=== PATIENT | male | born 1970 | race Hispanic/Latino ===

== ENCOUNTER 2018-04-08 07:00 | Emergency (ER) | payer BC, OTHER ==
[2018-04-08] MEDS ORDERED: TORADOL IM ONE (07:35)
[2018-04-08] MEDS ORDERED: DECADRON IM ONE (07:35)
--- NOTE | 2018-04-08 07:40 | Emergency Department Report ---
ED Neck Pain HPI Chief Complaint: Neck Pain/Injury Stated Complaint: NECK PAIN Time Seen by Provider: 04/08/18 07:34 Duration: 3 weeks Neck Pain Location: Lateral Neck (right side), Trapezius (right side) Severity: severe Mechanism: Unsure Symptoms: Yes Pain with Movement, No Radiation to Left Upper Ext, No Radiation to Right Upper Ext, No Numbness, No Weakness, No Previous History Other History: This is a 48-year-old male that presents with right sided knee pain for 3 weeks. Patient reports feeling like her throat was on the right side of neck with each turn for the past 3 weeks. When he woke up this morning and reports pain increased and he was unable to move neck. Reports pain as 10 out of 10 on pain scale. Pain is non-radiating and remains on the right lateral side of neck. At times pain is in lower right region of neck. Reports taking and [place] since symptoms started. His gave him a muscle relaxer despite morning which improved pain. Denies recent injury, fall, numbness or tingling, fever, and difficulty swallowing. ED Review of Systems ROS: Stated complaint: NECK PAIN Other details as noted in HPI Constitutional: denies: chills, fever Respiratory: denies: cough, shortness of breath, wheezing Cardiovascular: denies: chest pain, palpitations Gastrointestinal: denies: abdominal pain, nausea, diarrhea Musculoskeletal: arthralgia (right sided lateral neck pain). denies: back pain , joint swelling Skin: denies: rash, lesions Neurological: denies: headache, weakness, paresthesias Psychiatric: denies: anxiety, depression ED Past Medical Hx - Past Medical History Previous Medical History?: No - Surgical History Past Surgical History?: No - Social History Smoking Status: Never Smoker Substance Use Type: None, Non Opiate Pain - Medications Home Medications: Home Medications Medication Instructions Recorded Confirmed Last Taken Type Cyclobenzaprine HCl [Flexeril 5 MG 5 mg PO TID PRN #30 tab 04/08/18 Unknown Rx TAB] Naproxen Sodium [Anaprox Ds] 550 mg PO TID PRN #30 tablet 04/08/18 Unknown Rx Neck Pain Exam - Exam General: Vital signs noted. No distress. Alert and acting appropriately. HEENT: No Facial Pain, No Scalp Tenderness, No Contusion, No Abrasion, No Laceration Neck Pain: Yes Right Trapezius Tenderness, Yes Pain with Rotation Right (30 active range of motion, and able to tolerate passive range of motion), Yes Pain with Rotation Left, Yes Pain with Extension, Yes Pain with Flexion, Yes pain with R Lateral Flexion, Yes Pain with L Lateral Flexion, No Midline Tenderness, No Right Paraspinal Tenderness, No Left Paraspinal Tenderness, No Left Trapezius Tenderness Chest: Yes Clear Lung Sounds, No Pain with Respirations Heart: Yes Regular, No Murmur Back: No Thoracic Tenderness, No Lumbar Tenderness Neuro: No Numbness, No Weakness, No Normal Reflexes, No Radicular Deficits ED Course Vital Signs 04/08/18 07:14 Temperature 97.6 F Pulse Rate 61 Respiratory 18 Rate Blood Pressure 129/85 O2 Sat by Pulse 99 Oximetry ED Medical Decision Making - Medical Decision Making This is a 48-year-old male presents with neck pain that is worse on the right side for 3 weeks. Patient was examined by me. Vitals stable. Physical findings susceptible of muscle strain of right trapezius muscles with muscle spasm. Xray of C-spine and CT obtained and read by radiologist. Degenerative changes at C6 to C7, no acute findings. Patient informed of results. Start naproxen and cyclobenzaprine for pain. Plan discussed with patient to discharge home and treat outpatient. Follow-up with physical therapy. He agrees with ER plan. Patient discharged home in stable condition. Follow up with PCP and dentist in 2-3 days. Critical care attestation.: If time is entered above; I have spent that time in minutes in the direct care of this critically ill patient, excluding procedure time. ED Disposition Clinical Impression: Muscle spasms of neck Strain of right trapezius muscle Qualifiers: Encounter type: initial encounter Qualified Code(s): S46.811A - Strain of other muscles, fascia and tendons at shoulder and upper arm level, right arm, initial encounter Disposition: TO HOME OR SELFCARE Is pt being admited?: No Does the pt Need Aspirin: No Condition: Stable Instructions: Muscle Strain (ED) Additional Instructions: Rest Use ice or heat on affected area for 20 minutes and off for 2 hours. Take pain medication as needed for pain. Don't drive or operate heavy machinery while taking muscle relaxers because they may cause drowsiness. Follow-up with physical therapy. Follow up with Primary Care Provider in 2-3 days. Prescriptions: Cyclobenzaprine HCl [Flexeril 5 MG TAB] 5 mg PO TID PRN #30 tab PRN Reason: Muscle Spasm Naproxen Sodium [Anaprox Ds] 550 mg PO TID PRN #30 tablet PRN Reason: Pain Referrals: PRIMARY CARE,MD [Primary Care Provider] - 3-5 Days [facility] [Provider Group] - 3-5 Days [facility] [Other] - 3-5 Days Forms: Work/School Release Form(ED) Time of Disposition: 10:54 Print Language: MOHAWK
--- NOTE | 2018-04-08 11:19 | XRay Report ---
CERVICAL SPINE RADIOGRAPHS INDICATION: Right neck pain. COMPARISON: None similar. FINDINGS: AP, lateral, open mouth and swimmer's views of the cervical spine, 4 radiographs demonstrate normal imaged dens with symmetric lateral masses, though dens tip obscured due to overlying structures. Few radiopaque dental fillings. Clear visualized lung apices. Intact craniocervical articulation on the lateral view with normal predental space and prevertebral soft tissues. Preserved airway. Normal vertebral body stature. Fairly preserved disc heights. Slight straightening, possibly positional versus spasm. Mild C6-C7 degenerative spurring noted. CONCLUSION: Mild C6-C7 degenerative changes, as described. Please also correlate clinically and further with CT/MRI, as warranted. Thank you for the opportunity to participate in this patient's care.
[2018-04-08 11:20] VITALS: BP 141/89
--- NOTE | 2018-04-08 11:20 | Cat Scan Report ---
CT NECK WITH CONTRAST INDICATION: Neck pain. COMPARISON: None similar. FINDINGS: Neck CT performed following IV contrast. Axial, sagittal and coronal CT reconstructions obtained. Normal imaged intracranial appearance and included eye globes. Approximately 3 mm leftward nasal septal spur. Slight sphenoid sinus mucosal thickening anteriorly, right more than left. Clear remainder imaged paranasal sinuses and mastoid air cells. Few radiopaque dental material create streak artifact, limiting exam. Patent airway with unremarkable pharynx, hypopharynx and the larynx. Normal thyroid. Patent vessels. No size significant adenopathy. Clear visualized lung apices. C3-C4 and C4-C5 demonstrate mild left uncovertebral spurring and possible neural foraminal narrowing. C5-C6 may also demonstrate mild bilateral uncovertebral spurring and possible neural foraminal narrowing. C6-C7 also demonstrates mild left uncovertebral spurring, though assessment of the spinal canal from this level inferiorly compromised due to artifact from shoulder soft tissues. C7-T1 suggests slight bilateral facet arthropathy. CONCLUSION: No acute neck CT abnormality with few incidental findings, as above. Thank you for the opportunity to participate in this patient's care.
== END 2018-04-08 11:19 | disposition home or self-care (01) ==
LOC: ED 07:00
DX: S46.811A Strain of other muscles, fascia and tendons at shoulder and upper arm level, right arm, initial encounter (principal); M62.838 Other muscle spasm; X58.XXXA Exposure to other specified factors, initial encounter; Y93.89 Activity, other specified; Y92.89 Other specified places as the place of occurrence of the external cause; Y99.8 Other external cause status
CPT/HCPCS: 70491; 72040; 96372; 99284; J1100; J1885; Q9967

== ENCOUNTER 2018-04-20 17:01 | Emergency (ER) | payer BC ==
[2018-04-20 17:57] LABS: Bilirubin,Urine NEG (Negative); Blood,Urine MOD (Negative); Color,Urine Yellow (Yellow); Mucus,Urine 1+ /HPF; Protein,Urine <15 mg/dL mg/dL (Negative); Urobilinogen,Urine < 2.0 mg/dL (<2.0)
[2018-04-20 18:24] LABS: Basophils % (Auto) 0.7 % (0.0-1.8); Eosinophils # (Auto) 0.1 K/mm3 (0.0-0.4); Eosinophils % (Auto) 1.7 % (0.0-4.3); Hematocrit 43.6 % (35.5-45.6); Hemoglobin 15.5 gm/dl (11.8-15.2); Lymphocytes # (Auto) 1.5 K/mm3 (1.2-5.4); Lymphocytes % (Auto) 26.3 % (13.4-35.0); Mean Corpuscular HGB Conc 36 % (32-34); Mean Corpuscular Hemoglobin 32 pg (28-32); Mean Corpuscular Volume 89 fl (84-94); Monocytes # (Auto) 0.4 K/mm3 (0.0-0.8); Monocytes % (Auto) 6.7 % (0.0-7.3); Platelet Count 223 K/mm3 (140-440); Red Blood Count 4.93 M/mm3 (3.65-5.03); Red Cell Distribution Width 13.1 % (13.2-15.2)
--- NOTE | 2018-04-20 18:26 | Emergency Department Report ---
Blank Doc - Documentation Documentation: 48-year-old male with a past medical history of kidney stones treated with lithotripsy in the past presents to the hospital complaining of left flank pain several onset at 8 AM. Pain felt like "I was passing a kidney stone". Positive nausea without vomiting. Denies hematuria but states urine is dark in color. Pain subsided after drinking a lot of water and taking ibuprofen prior to arrival. Patient's urologist is Dr. Rainey and he was advised to come to the ED for evaluation. Last lithotripsy procedure was 3 years ago.
[2018-04-20 18:43] LABS: Alanine Aminotransferase 51 units/L (7-56); Albumin 4.5 g/dL (3.9-5); BUN/Creatinine Ratio 18; Blood Urea Nitrogen 18 mg/dL (9-20); Calcium 8.8 mg/dL (8.4-10.2); Hemolysis Index 21; Lipase 28 units/L (13-60)
--- NOTE | 2018-04-20 19:11 | Cat Scan Report ---
FINAL REPORT PROCEDURE: CT ABDOMEN PELVIS WO CON TECHNIQUE: Computerized axial tomography of the abdomen and pelvis was performed without intravenous contrast. This study is performed without intravascular contrast material and its sensitivity for abdominal and pelvic pathology, including neoplasms, inflammation, abscess, free fluid, thrombosis, arterial dissection and infarction, is reduced compared with a contrast enhanced study. HISTORY: left flank pain, hx of kidney stones COMPARISON: 01/10/2014 FINDINGS: Visualized lower thorax: No significant abnormality. Liver: There is diffuse low attenuation of the liver, compatible with fatty infiltration. Spleen: Normal size and attenuation. Gallbladder and biliary system: There is cholelithiasis. Pancreas: Normal. Adrenals: Normal. Kidneys: No hydronephrosis or urolithiasis bilaterally. GI tract: The appendix is visualized and does not appear inflamed. No bowel obstruction or acute inflammation is seen.. Lymph nodes and mesentery: Normal. Vasculature: Normal. Bladder: Normal. Reproductive organs: Normal. Peritoneum: No free fluid. Musculoskeletal structures: No significant abnormality. Other: None. IMPRESSION: Fatty infiltration of the liver. No hydronephrosis or urolithiasis. No acute inflammation is identified.
--- NOTE | 2018-04-20 19:35 | Emergency Department Report ---
ED Male HPI - General Chief complaint: Abdominal Pain Stated complaint: KIDNEY STONE PAIN Time Seen by Provider: 04/20/18 18:24 Source: patient Mode of arrival: Ambulatory Limitations: No Limitations - History of Present Illness Initial comments: 48-year-old male past medical history renal colic presents with complaint of left-sided flank pain with some associated nausea that started earlier today. Patient is currently awake alert and oriented 3 fully lucid and denies any pain nausea fever chills or dysuria whatsoever. Does state that his urine may have been darker or blood-tinged earlier today. States that he drank lots of fluid and now feels significantly better and has no pain at this time. Patient was evaluated by Dr. Nuno earlier. Denies fevers or chills. States he does have a history of kidney stones and follows with [facility]. -: This morning Location: left flank Severity: moderate Severity scale (0 -10): 0 Consistency: now resolved Improves with: none Worsens with: urination blood in urine - Related Data Previous Rx's Medication Instructions Recorded Last Taken Type Naproxen Sodium [Anaprox Ds] 550 mg PO TID PRN #30 tablet 04/08/18 Unknown Rx Tizanidine HCl [Zanaflex] 6 mg PO TID PRN #20 capsule 04/08/18 Unknown Rx Ibuprofen [Motrin] 800 mg PO Q8HR PRN #20 tablet 04/20/18 Unknown Rx Ondansetron [Zofran Odt] 4 mg PO Q8H PRN #12 tab.rapdis 04/20/18 Unknown Rx Allergies Allergy/AdvReac Type Severity Reaction Status Date / Time No Known Allergies Allergy Unverified 04/08/18 07:13 ED Review of Systems ROS: Stated complaint: KIDNEY STONE PAIN Other details as noted in HPI Constitutional: denies: chills, fever Eyes: denies: eye pain, eye discharge, vision change ENT: denies: ear pain, throat pain Respiratory: denies: cough, shortness of breath, wheezing Cardiovascular: denies: chest pain, palpitations Endocrine: no symptoms reported Gastrointestinal: denies: abdominal pain, nausea, diarrhea Genitourinary: as per HPI. denies: urgency, dysuria Musculoskeletal: denies: back pain, joint swelling, arthralgia Skin: denies: rash, lesions Neurological: denies: headache, weakness, paresthesias Psychiatric: denies: anxiety, depression Hematological/Lymphatic: denies: easy bleeding, easy bruising ED Past Medical Hx - Past Medical History Previous Medical History?: Yes Hx Kidney Stones: Yes Additional medical history: neck pain - Surgical History Past Surgical History?: Yes Additional Surgical History: Lithotripsy - Social History Smoking Status: Never Smoker Substance Use Type: Alcohol, Prescribed - Medications Home Medications: Home Medications Medication Instructions Recorded Confirmed Last Taken Type Naproxen Sodium [Anaprox Ds] 550 mg PO TID PRN #30 tablet 04/08/18 Unknown Rx Tizanidine HCl [Zanaflex] 6 mg PO TID PRN #20 capsule 04/08/18 Unknown Rx Ibuprofen [Motrin] 800 mg PO Q8HR PRN #20 tablet 04/20/18 Unknown Rx Ondansetron [Zofran Odt] 4 mg PO Q8H PRN #12 tab.rapdis 04/20/18 Unknown Rx ED Physical Exam - General Limitations: No Limitations General appearance: alert, in no apparent distress - Head Head exam: Present: atraumatic, normocephalic - Eye Eye exam: Present: normal appearance - ENT ENT exam: Present: mucous membranes moist - Neck Neck exam: Present: normal inspection - Respiratory Respiratory exam: Present: normal lung sounds bilaterally. Absent: respiratory distress - Cardiovascular Cardiovascular Exam: Present: regular rate, normal rhythm. Absent: systolic murmur, diastolic murmur, rubs, gallop - GI/Abdominal GI/Abdominal exam: Present: soft, normal bowel sounds - Rectal Rectal exam: Present: deferred - Extremities Exam Extremities exam: Present: normal inspection - Back Exam Back exam: Present: normal inspection - Neurological Exam Neurological exam: Present: alert, oriented X3 - Psychiatric Psychiatric exam: Present: normal affect, normal mood - Skin Skin exam: Present: warm, dry, intact, normal color. Absent: rash ED Course Vital Signs 04/20/18 04/20/18 17:06 19:52 Temperature 98.5 F 98.2 F Pulse Rate 93 H 68 Respiratory 18 18 Rate Blood Pressure 126/82 Blood Pressure 116/77 [Right] O2 Sat by Pulse 96 100 Oximetry ED Medical Decision Making - Lab Data Result diagrams: 04/20/18 17:52 04/20/18 17:52 - Medical Decision Making A/P: Renal colic, kidney stone 1-labs are unremarkable except for UA which shows moderate blood this is consistent with passing of kidney stone area and no nitrites or leukocytes. Patient has no current dysuria pain or nausea 2-CT scan shows no hydronephrosis or no obstructing stone 3-patient to follow up with his outpatient urologist Dr. Maldonado 4-vital signs stable for discharge Critical care attestation.: If time is entered above; I have spent that time in minutes in the direct care of this critically ill patient, excluding procedure time. ED Disposition Clinical Impression: Renal colic on left side Disposition: DC-01 TO HOME OR SELFCARE Is pt being admited?: No Does the pt Need Aspirin: No Condition: Stable Instructions: Renal Colic (ED) Prescriptions: Ibuprofen [Motrin] 800 mg PO Q8HR PRN #20 tablet PRN Reason: Pain Ondansetron [Zofran Odt] 4 mg PO Q8H PRN #12 tab.rapdis PRN Reason: Nausea Referrals: KANIKA GONZALEZ MD [Staff Physician] - 3-5 Days Forms: Accompanied Note, Work/School Release Form(ED) Time of Disposition: 19:39
[2018-04-20 19:55] VITALS: BP 116/77
== END 2018-04-20 19:52 | disposition home or self-care (01) ==
LOC: ED 17:01
DX: N23 Unspecified renal colic (principal)
CPT/HCPCS: 36415; 74176; 80053; 81001; 83690; 85025; 99284

== ENCOUNTER 2021-06-17 10:02 | Outpatient (CLI) | payer BC ==
--- NOTE | 2021-06-17 11:20 | XRay Report ---
BILATERAL SHOULDERS 3 VIEWS INDICATION: BILATERAL SHOULDER PAIN. Previous left shoulder injury COMPARISON: None. IMPRESSION: Images of the right shoulder are unremarkable with no evidence for acute injury or signi ficant degenerative changes. Images of the left shoulder demonstrate chronic deformity of the distal left clavicle consistent with healed fracture. Mild degenerative changes are noted at the AC joint. A small calcification overlies the expected position of the distal supraspinatus tendon consistent wi th chronic calcific tendinitis. Signer Name: Blas Barajas Jr, MD Signed: 06/17/2021 11:14 AM Workstation Name: [id number]
[2021-06-17 11:31] LABS: Alanine Aminotransferase 65 units/L (7-56); Albumin 5.2 g/dL (3.9-5); BUN/Creatinine Ratio 13; Blood Urea Nitrogen 13 mg/dL (9-20); Calcium 9.8 mg/dL (8.4-10.2); Chol/HDL Ratio 4.82 %; HDL Cholesterol 41 mg/dL (40-59); Hemolysis Index 15; LDL Cholesterol,Direct 143 mg/dL (50-130)
[2021-06-17 14:08] LABS: Basophils # (Auto) 0.1 K/mm3 (0.0-0.1); Basophils % (Auto) 1.5 % (0.0-1.8); Eosinophils # (Auto) 0.1 K/mm3 (0.0-0.4); Eosinophils % (Auto) 1.8 % (0.0-4.3); Hematocrit 46.7 % (35.5-45.6); Hemoglobin 16.3 gm/dl (11.8-15.2); Lymphocytes # (Auto) 1.4 K/mm3 (1.2-5.4); Lymphocytes % (Auto) 28.9 % (13.4-35.0); Mean Corpuscular HGB Conc 35 % (32-34); Mean Corpuscular Volume 90 fl (84-94); Monocytes # (Auto) 0.3 K/mm3 (0.0-0.8); Monocytes % (Auto) 7.1 % (0.0-7.3); Platelet Count 206 K/mm3 (140-440); Red Blood Count 5.19 M/mm3 (3.65-5.03); Red Cell Distribution Width 13.2 % (13.2-15.2)
== END 2021-06-17 10:03 | disposition home or self-care (01) ==
LOC: XRAY 10:02
PROVIDERS: ATTEND Nurse Practitioner Family
DX: Z12.5 Encounter for screening for malignant neoplasm of prostate (principal); Z00.00 Encounter for general adult medical examination without abnormal findings; M19.012 Primary osteoarthritis, left shoulder; M19.011 Primary osteoarthritis, right shoulder
CPT/HCPCS: 36415; 80053; 80061; 84153; 84443; 85025